=== PATIENT | female | born 1975 | race Caucasian/White ===

== ENCOUNTER 2017-05-12 02:25 | Observation (INO) | payer SELFPAY ==
[~2017-05-12] VITALS: Ht 157.5 cm; Wt 61.0 kg
[~2017-05-12 02:25] MED LIST: AMOCLA875 PO; CEPH500 PO; HYDACE5 PO; HYDPAM25 PO; IBUP800 PO; MEDR150I IM; NAPR220 PO; NYQUELL PO; OXYACE5T PO; PROC10 PO; PROCODE120 PO; SULTRIDS PO
[2017-05-12 02:55] LABS: BASOPHILS ABSOLUTE AUTO 0.04 K/mm3 (0.00-0.23); BASOPHILS PERCENT AUTO 0 % (0-2); EOSINOPHILS ABSOLUTE AUTO 0.02 K/mm3 (0.00-0.68); EOSINOPHILS PERCENT AUTO 0 % (0-6); Hematocrit 46.1 % (33.0-51.0); Hemoglobin 16.2 g/dL (11.5-16.0); IMMATURE GRAN ABSOLUTE AUTO 0.06 K/mm3 (0.00-0.10); IMMATURE GRAN PERCENT AUTO 0 % (0-1); LYMPHOCYTES ABSOLUTE AUTO 1.55 K/mm3 (0.84-5.20); LYMPHOCYTES PERCENT AUTO 11 % (21-46); MONOCYTES ABSOLUTE AUTO 0.79 K/mm3 (0.16-1.47); MONOCYTES PERCENT AUTO 6 % (4-13); Mean Corpuscular HGB 29.8 pg (26.0-34.0); Mean Corpuscular HGB Conc 35.1 g/dL (31.5-36.5); Mean Corpuscular Volume 85 fL (80-100); Mean Platelet Volume 10.7 fL (9.1-12.4); NEUTROPHILS ABSOLUTE AUTO 11.59 K/mm3 (1.96-9.15); NEUTROPHILS PERCENT AUTO 83 % (41-73); Platelet Count 336 K/mm3 (150-400); RDW Standard Deviation 36.7 fL (35.1-46.3); Red Blood Cell Count 5.44 M/mm3 (3.80-5.20); White Blood Cell Count 14.05 K/mm3 (4.00-11.30)
[2017-05-12 03:18] LABS: Alanine Aminotransfer (ALT/SGP 29 U/L (12-78); Albumin, Blood 4.1 g/dL (3.4-5.0); Albumin/Globulin Ratio 0.9 (0.8-1.8); Alk Phos 80 U/L (50-136); Anion Gap 11 mmol/L (6-16); Aspartate Aminotrans (AST/SGOT 22 U/L (12-37); Bilirubin, Total 0.7 mg/dL (0.1-1.0); Blood Urea Nitrogen 14 mg/dL (8-24); Bun/Creatinine Ratio 13.7 (12.0-20.0); CO2, Blood 25 mmol/L (21-32); Calcium, Blood 10.2 mg/dL (8.5-10.1); Chloride, Blood 102 mmol/L (98-108); Creatinine, Blood 1.02 mg/dL (0.40-1.00); Ethanol (Alcohol), Blood, Med <3 mg/dL; Globulin, Blood 4.4 g/dL (2.2-4.0); Glomerular Filtration Rate >60 (60-); Glucose, Blood 140 mg/dL (70-99); Potassium, Blood 3.9 mmol/L (3.5-5.5); Sodium, Blood 138 mmol/L (136-145); Total Protein, Blood 8.5 g/dL (6.4-8.2); Troponin I <0.015 ng/mL (0.000-0.040)
== END 2017-05-13 15:43 | disposition home or self-care (01) ==
LOC: ER 02:25 → SURS 02:26 → ER 04:01 → ERHOLD 04:01 → SURS 04:01 → ERHOLD 08:47 → SURS 05-13 15:43
PROVIDERS: Emergency Medicine
DX: K56.609 Unspecified intestinal obstruction, unspecified as to partial versus complete obstruction (principal); F17.200 Nicotine dependence, unspecified, uncomplicated; Z90.49 Acquired absence of other specified parts of digestive tract; Z98.890 Other specified postprocedural states
CPT/HCPCS: 36415; 74019; 74176; 80053; 83690; 84484; 85025; 93005; 93010; 96361; 96374; 96375; 96376; 99285; G0378; G0480; J1170; J2060; J2405; J7030

== ENCOUNTER 2018-12-27 03:19 | Observation (INO) | payer BC ==
[~2018-12-27] VITALS: Ht 157.5 cm; Wt 63.5 kg
[2018-12-27] MEDS ORDERED: Depo-Prove150 MG/11 IM (03:35)
[2018-12-27 03:46] LABS: BASOPHILS ABSOLUTE AUTO 0.04 K/mm3 (0.00-0.23); BASOPHILS PERCENT AUTO 0 % (0-2); EOSINOPHILS ABSOLUTE AUTO 0.09 K/mm3 (0.00-0.68); EOSINOPHILS PERCENT AUTO 1 % (0-6); Hematocrit 45.4 % (33.0-51.0); Hemoglobin 15.6 g/dL (11.5-16.0); IMMATURE GRAN ABSOLUTE AUTO 0.06 K/mm3 (0.00-0.10); IMMATURE GRAN PERCENT AUTO 0 % (0-1); LYMPHOCYTES ABSOLUTE AUTO 1.87 K/mm3 (0.84-5.20); LYMPHOCYTES PERCENT AUTO 12 % (21-46); MONOCYTES ABSOLUTE AUTO 0.88 K/mm3 (0.16-1.47); MONOCYTES PERCENT AUTO 6 % (4-13); Mean Corpuscular HGB 30.2 pg (26.0-34.0); Mean Corpuscular HGB Conc 34.4 g/dL (31.5-36.5); Mean Corpuscular Volume 88 fL (80-100); Mean Platelet Volume 10.6 fL (9.1-12.4); NEUTROPHILS ABSOLUTE AUTO 12.24 K/mm3 (1.96-9.15); NEUTROPHILS PERCENT AUTO 81 % (41-73); Platelet Count 307 K/mm3 (150-400); RDW Coefficient Variation 12.3 % (11.7-14.2); RDW Standard Deviation 40.2 fL (35.1-46.3); Red Blood Cell Count 5.17 M/mm3 (3.80-5.20); White Blood Cell Count 15.18 K/mm3 (4.00-11.30)
[2018-12-27 04:07] LABS: Alanine Aminotransfer (ALT/SGP 60 U/L (12-78); Albumin, Blood 4.1 g/dL (3.4-5.0); Albumin/Globulin Ratio 0.9 (0.8-1.8); Alk Phos 82 U/L (50-136); Anion Gap 10 mmol/L (6-16); Aspartate Aminotrans (AST/SGOT 35 U/L (12-37); Bilirubin, Total 0.6 mg/dL (0.1-1.0); Blood Urea Nitrogen 21 mg/dL (8-24); Bun/Creatinine Ratio 23.1 (12.0-20.0); CO2, Blood 25 mmol/L (21-32); Calcium, Blood 10.5 mg/dL (8.5-10.1); Chloride, Blood 106 mmol/L (98-108); Creatinine, Blood 0.91 mg/dL (0.40-1.00); Globulin, Blood 4.4 g/dL (2.2-4.0); Glomerular Filtration Rate >60 (60-); Glucose, Blood 133 mg/dL (70-99); Potassium, Blood 3.8 mmol/L (3.5-5.5); Sodium, Blood 141 mmol/L (136-145); Total Protein, Blood 8.5 g/dL (6.4-8.2)
--- NOTE | 2018-12-27 05:55 | NUR ---
PT ADMITTED FROM ED FOR SBO. A&O X4 AND INDEPENDENT IN ROOM. VS WNL. PT GIVEN 1MG OF DILAUDID PRIOR TO ARRIVING. PT RESTING AT THIS TIME.
--- NOTE | 2018-12-27 17:26 | NUR ---
SHIFT SUMMARY PT CONTINUES TO HAVE N/V X'S 2 THIS SHIFT-TOTAL APROX 800ML BROWN EMESIS THIS SHIFT. PT MEDICATED FOR NAUSEA/PAIN PER EMAR. PT DIET ADVANCED TO CLEAR LIQUIDS PER CORINA MENDIETA ORDERED FOR AM. PT OUTSIDE TO SMOKE ONCE THIS SHIFT.
[2018-12-27 18:33] LABS: Source, Urine Clean Catch
[2018-12-27 18:38] LABS: Bilirubin, Urine Neg (Neg); Blood, Urine 1+ (Neg); Glucose Qualitative, Urine Neg (Neg); Ketones, Urine 2+ (Neg); Leukocyte Esterase, Urine 1+ (Neg); Nitrite, Urine Neg (Neg); Protein, Urine 1+ (Neg); Specific Gravity, Urine 1.025 (1.003-1.022); Urobilinogen, Urine NORM (Normal)
[2018-12-27 18:45] LABS: Appearance, Urine Clear (Clear); Color, Urine Yellow (P-Yellow)
[2018-12-27 18:46] LABS: Bacteria Mod /hpf; Red Blood Cells, Urine 0-2 /hpf (0-2); Squamous Epithelial Cells Few /hpf (Few)
[2018-12-27 18:51] LABS: U Amphetamine Screen DETECTED; U Barbituate Screen Not Detected; U Cannabinoids Screen DETECTED; U Methamphetamine Screen DETECTED; U Opiates Screen DETECTED
[2018-12-27 18:52] LABS: U Benzodiazapine Screen Not Detected; U Buprenorphine Screen Not Detected; U Cocaine Screen Not Detected; U Methadone Screen Not Detected; U Oxycodone Screen Not Detected; U Phencyclidine Screen Not Detected; U Propoxyphene Screen Not Detected
--- NOTE | 2018-12-28 07:28 | NUR ---
SHIFT SUMMARY: NO ACUTE CHANGES OVER NIGHT. PAIN MANAGED WITH 1MG DILAUDID. GIVEN ZOFRAN WITH EACH IV PAIN MED ADMINISTRATION. NO EMESIS THIS SHIFT. DENIES PASSING GAS. NPO FOR PLANNED SMALL BOWEL FOLLOW THROUGH THIS MORNING WITH CONTRAST. FLUIDS INFUSING.
--- NOTE | 2018-12-28 17:27 | NUR ---
DISCHARGE PT GIVEN WRITTEN AND VERBAL DISCHARGE INSTRUCTIONS AND VERBALIZED UNDERSTANDING OF THESE INSTRUCTIONS. WAITING ON RIDE FOR DISCHARGE. IV REMOVED, PT TOLERATED WELL.
--- NOTE | 2018-12-28 17:40 | NUR ---
DISCHARGE PT DISCHARGED HOME FROM UNIT AT APROX 7457
== END 2018-12-28 17:38 | disposition home or self-care (01) ==
LOC: ER 03:19 → SURS 03:20 → ER 05:39 → SURS 05:39
PROVIDERS: Emergency Medicine; ADMIT Surgery
DX: K56.600 Partial intestinal obstruction, unspecified as to cause (principal); F17.200 Nicotine dependence, unspecified, uncomplicated
CPT/HCPCS: 36415; 74177; 74250; 80053; 81001; 81025; 83690; 85025; 87077; 87086; 87186; 96374-59; 96375; 96376; 99285-25; J1170; J2405; J7030; Q9967

== ENCOUNTER 2019-03-03 06:04 | Day surgery (SDC) | payer BC ==
[~2019-03-03] VITALS: Ht 157.5 cm; Wt 61.6 kg
[~2019-03-03 06:04] MED LIST changes: +Depo-Prove150 MG/11 IM
--- NOTE | 2019-03-03 06:46 | NUR ---
Ambulatory in Day Surgery History, Chart, Medications and Allergies reviewed before start of procedure. Lungs clear T/O to Auscultation. Pre-Op teaching done. Pt verbalizes understanding. Patient States Post-Procedure ride home has been arranged.
--- NOTE | 2019-03-03 09:44 | NUR ---
"DAY SURGERY RN | DISCHARGED VSS. A/O. DENIES PAIN AND NAUSEA. REINFORCED SITES WITH 2X2 GAUZE AND TAPE. SITES INTACT AND SMALL OOZING. DISCHARGE INSTRUCTIONS AND RX GIVEN TO PATIENT. TAKEN IN WHEELCHAIR TO FRONT ENTRANCE BY VOLUNTEER. NO ISSUES. FAMILY IS RIDE HOME."
--- NOTE | 2019-03-04 08:31 | NUR ---
03/04/19 0831 Tonja Alvarez VERIFICATIONS: EDIT CHART.
== END 2019-03-03 23:07 | disposition home or self-care (01) ==
LOC: ORSCMMR 06:04 → ORD 07:30 → ORSCMMR 23:07
PROVIDERS: Surgery
PROC: 0DNU4ZZ Release Omentum, Percutaneous Endoscopic Approach (ICD-10-PCS; principal; 2019-03-03 07:30)
DX: K66.0 Peritoneal adhesions (postprocedural) (postinfection) (principal); Z87.19 Personal history of other diseases of the digestive system; K56.609 Unspecified intestinal obstruction, unspecified as to partial versus complete obstruction; F17.210 Nicotine dependence, cigarettes, uncomplicated
CPT/HCPCS: J0690; J1100; J1885; J2250; J2405; J2704; J3010; J7120

== ENCOUNTER 2020-02-25 20:27 | Inpatient (IN) | payer SELFPAY ==
[~2020-02-25] VITALS: Ht 157.5 cm; Wt 54.8 kg
[2020-02-25 21:10] LABS: BASOPHILS ABSOLUTE AUTO 0.03 K/mm3 (0.00-0.23); BASOPHILS PERCENT AUTO 0 % (0-2); EOSINOPHILS ABSOLUTE AUTO 0.14 K/mm3 (0.00-0.68); EOSINOPHILS PERCENT AUTO 1 % (0-6); Hematocrit 42.1 % (33.0-51.0); Hemoglobin 14.1 g/dL (11.5-16.0); IMMATURE GRAN ABSOLUTE AUTO 0.02 K/mm3 (0.00-0.10); IMMATURE GRAN PERCENT AUTO 0 % (0-1); LYMPHOCYTES ABSOLUTE AUTO 1.98 K/mm3 (0.84-5.20); LYMPHOCYTES PERCENT AUTO 20 % (21-46); MONOCYTES ABSOLUTE AUTO 0.76 K/mm3 (0.16-1.47); MONOCYTES PERCENT AUTO 8 % (4-13); Mean Corpuscular HGB 29.8 pg (26.0-34.0); Mean Corpuscular HGB Conc 33.5 g/dL (31.5-36.5); Mean Corpuscular Volume 89 fL (80-100); Mean Platelet Volume 10.4 fL (9.1-12.4); NEUTROPHILS ABSOLUTE AUTO 6.85 K/mm3 (1.96-9.15); NEUTROPHILS PERCENT AUTO 70 % (41-73); Platelet Count 291 K/mm3 (150-400); RDW Coefficient Variation 12.3 % (11.7-14.2); RDW Standard Deviation 40.1 fL (35.1-46.3); Red Blood Cell Count 4.73 M/mm3 (3.80-5.20); White Blood Cell Count 9.78 K/mm3 (4.00-11.30)
[2020-02-25 21:33] LABS: Alanine Aminotransfer (ALT/SGP 18 U/L (12-78); Albumin, Blood 3.5 g/dL (3.4-5.0); Alk Phos 66 U/L (50-136); Anion Gap 7 mmol/L (6-16); Aspartate Aminotrans (AST/SGOT 21 U/L (12-37); Bilirubin, Total 0.6 mg/dL (0.1-1.0); Blood Urea Nitrogen 10 mg/dL (8-24); Bun/Creatinine Ratio 13.8 (12.0-20.0); CO2, Blood 25 mmol/L (21-32); Calcium, Blood 8.8 mg/dL (8.5-10.1); Chloride, Blood 108 mmol/L (98-108); Creatinine, Blood 0.72 mg/dL (0.40-1.00); Globulin, Blood 3.6 g/dL (2.2-4.0); Glomerular Filtration Rate >60 (60-); Glucose, Blood 95 mg/dL (70-99); Potassium, Blood 3.9 mmol/L (3.5-5.5); Sodium, Blood 140 mmol/L (136-145); Total Protein, Blood 7.1 g/dL (6.4-8.2)
--- NOTE | 2020-02-26 07:59 | NUR ---
SHIFT SUMMARY NEW ADMIT THIS SHIFT. AAOX4. NPO. PT REPORTING DISCOMFORT AT TOLERABLE LEVEL SINCE ADMISSION TO FLOOR, DENIES NAUSEA/EMESIS. ABD SOFT/MILDLY DISTENDED PER PT. PT REFUSING NGT + COVID TEST THIS SHIFT, REQUESTING TO REST. PT ORIENTED TO ROOM + CALL LIGHT USE. PT CURRENTLY RESTING IN BED WITH CALL LIGHT IN REACH. REPORT TO DAY SHIFT RN.
--- NOTE | 2020-02-26 14:00 | NUR ---
PT BACK FROM IMAGING.
--- NOTE | 2020-02-26 16:44 | NUR ---
SHIFT SUMMARY SBO, A/O X4, VSS, TOLERATING CLEAR FLUIDS, ADVANCING DIET TO FULL LIQUID PER ORDER, AMBULATING, VOIDING WELL, SM BM THIS MORNING. FLUIDS RUNNING PER ORDER, DENIES PAIN, DENIES N/V. CALL LIGHT IN REACH WILL CONTINUE TO MONITOR AND REPORT TO ONCOMING NOC RN.
--- NOTE | 2020-02-27 04:00 | NUR ---
PATIENT HAS BEEN SLEEPING WELL THROUGHOUT NIGHT WITH SOME COMPLAINTS OF HEATBURN, THAT WAS RELEIVED WITH TUMS. SHE IS NOW IN THE SHOWER DUE TO HAVING INCONTINENCE OF STOOL ON THE WAY TO THE BR. PATIENT IS HAVING CHILLS AND 8/10 PAIN IN HER ABDOMEN. SHE STATES THAT SHE DRINKS ONE BEER EVERY 2-3 DAYS. CALL LIGHT IN REACH. WILL MEDICATE WITH TORADOL IV.
[2020-02-27 05:20] LABS: Hematocrit 38.8 % (33.0-51.0); Hemoglobin 12.9 g/dL (11.5-16.0); Mean Corpuscular HGB 29.8 pg (26.0-34.0); Mean Corpuscular HGB Conc 33.2 g/dL (31.5-36.5); Mean Corpuscular Volume 90 fL (80-100); Mean Platelet Volume 10.3 fL (9.1-12.4); Platelet Count 228 K/mm3 (150-400); RDW Standard Deviation 39.3 fL (35.1-46.3); Red Blood Cell Count 4.33 M/mm3 (3.80-5.20)
[2020-02-27 05:33] LABS: Anion Gap 7 mmol/L (6-16); Blood Urea Nitrogen 9 mg/dL (8-24); Bun/Creatinine Ratio 11.8 (12.0-20.0); CO2, Blood 24 mmol/L (21-32); Calcium, Blood 8.4 mg/dL (8.5-10.1); Chloride, Blood 109 mmol/L (98-108); Creatinine, Blood 0.76 mg/dL (0.40-1.00); Glomerular Filtration Rate >60 (60-); Glucose, Blood 108 mg/dL (70-99); Potassium, Blood 3.9 mmol/L (3.5-5.5); Sodium, Blood 140 mmol/L (136-145)
--- NOTE | 2020-02-27 10:08 | NUR ---
pt out of room
--- NOTE | 2020-02-27 17:01 | NUR ---
pt out of room
--- NOTE | 2020-02-27 17:17 | NUR ---
SUMMARY PT C/O OF INCREASING PAIN THIS AFTERNOON TO ABDOMEN. MEDICATED PER ORDERS W/TORADOL W/NO RELIEF. OBTAINED ORDERS FOR OT DOSE OF DILAUDID WHICH WAS ADMINISTERED PER ORDERS WELL ZOFRAN. PT RESTED W/LIGHTS OFF. NOW OUT OF ROOM INDEPENDENTLY.
--- NOTE | 2020-02-27 18:59 | NUR ---
REPORT GIVEN TO ONCOMING SHIFT.
--- NOTE | 2020-02-28 04:53 | NUR ---
SHIFT SUMMARY: PT BEGAN TO COMPLAIN OF SEVERE ABD PAIN LATE LAST NIGHT DESPITE ADMINISTRATION OF TORADOL. NEW ORDER FOR 0.5MG DILAUDID WHICH WAS AFFECTIVE. PT ALSO GIVEN ZOFRAN FOR NAUSEA. NO EMESIS. MEDICATED WITH TUMS PER EMAR FOR HEARTBURN. HYPERACTIVE BT X4. MODERATE DISTENTION. PT REPORTS PASSING FLATUS. PT HAS BEEN NPO SINCE MIDNIGHT WITH IVF INFUSING. PLAN FOR XRAY THIS MORNING AND POSSIBLE SURGERY DEPENDING ON RESULTS IMAGING.
--- NOTE | 2020-02-28 10:39 | NUR ---
PT TO OR
--- NOTE | 2020-02-28 11:24 | NUR ---
Ambulatory in Day Surgery. History, Chart, Medications and Allergies reviewed before start of procedure.Lungs clear T/O to Auscultation. Patient confirms NPO status and agrees with scheduled surgery. Pre-Op teaching done. Pt verbalizes understanding. PATIENT WAS BROUGHT TO D/S FOR HER PROCEDURE
--- NOTE | 2020-02-28 11:41 | NUR ---
ASSUMED CARE AND REPORT FROM ROLO RUBIO RN. PT AWAKE AND ORIENTED, C/O OF BACK PAIN FROM BEING IN BED TOO LONG, PROVIDED CHANGE IN POSITION, WARM BLANKET TO BACK AND ELEVATED KNEES WITH SOME RELIEF. PROVIDED RELAZING ENVIRONMENT FOR ANXIETY WITH MUSIC THERAPY INCLUDED.
--- NOTE | 2020-02-28 15:02 | NUR ---
PT ARRIVED BACK TO FLOOR FROM PACU. DENIED PAIN, N/V OR SOB. LAP INCISIONS X4 W/DERMABOND. CDI. PT ALERT AND REQUESTING SOMETHING TO DRINK ORDERS OBTAINED TO ADVANCE DIET TOLERATED. VSS. PT OUTSIDE IN WC, ACCOMPANIED BY FATHER AFTER TWO SETS OF POST OP VS. ADVISED PT TO RETURN TO ROOM W/IN 20 MINUTES FOR SAFETY.
[2020-02-28] MEDS ORDERED: ACET325 PO (16:02)
[2020-02-28] MEDS ORDERED: IBU600 M1 PO (16:03)
[2020-02-28] MEDS ORDERED: OXAYDO5 M1 PO (16:04)
--- NOTE | 2020-02-28 16:34 | NUR ---
DISCHARGED VSS. PT ANXIOUS TO GO HOME. TOLERATED JELLO, FLUIDS AND PUDDING. DC'D IV, CATHETER INTACT. REVIEWED DC INSTRUCTIONS; PT VERBALIZED UNDERSTANDING. LEFT UNIT IN WC, ACCOMPANIED BY FATHER W/POSSESSIONS AND DC PAPERWORK IN HAND.
== END 2020-02-28 16:34 | disposition home or self-care (01) | DRG 337 ==
LOC: ER 20:27 → SURS 20:28 → ERHOLD 20:28 → SURS 23:46
PROVIDERS: Emergency Medicine; ADMIT Surgery
PROC: 0DNU4ZZ Release Omentum, Percutaneous Endoscopic Approach (ICD-10-PCS; principal; 2020-02-28 12:00)
PROC: 0DNW4ZZ Release Peritoneum, Percutaneous Endoscopic Approach (ICD-10-PCS; 2020-02-28 12:00)
DX: K56.50 Intestinal adhesions [bands], unspecified as to partial versus complete obstruction (principal); F17.200 Nicotine dependence, unspecified, uncomplicated; Z20.828 Contact with and (suspected) exposure to other viral communicable diseases
CPT/HCPCS: 36415; 74018; 74250; 80048; 80053; 83605; 83690; 83735; 85025; 85027; 87040; 96361; 96374; 96375; 99284-25; J0690; J1100; J1170; J1885; J2250; J2270; J2370; J2405; J2704; J2710; J3010; J7120; U0004

== ENCOUNTER 2020-03-01 16:58 | Observation (INO) | payer SELFPAY ==
[~2020-03-01] VITALS: Ht 157.5 cm; Wt 59.8 kg
[~2020-03-01 16:58] MED LIST changes: +ACET325 PO; +IBU600 M1 PO; +OXAYDO5 M1 PO
[2020-03-01 17:49] LABS: BASOPHILS ABSOLUTE AUTO 0.04 K/mm3 (0.00-0.23); BASOPHILS PERCENT AUTO 0 % (0-2); EOSINOPHILS ABSOLUTE AUTO 0.17 K/mm3 (0.00-0.68); EOSINOPHILS PERCENT AUTO 2 % (0-6); Hematocrit 42.4 % (33.0-51.0); IMMATURE GRAN ABSOLUTE AUTO 0.02 K/mm3 (0.00-0.10); IMMATURE GRAN PERCENT AUTO 0 % (0-1); LYMPHOCYTES ABSOLUTE AUTO 1.67 K/mm3 (0.84-5.20); LYMPHOCYTES PERCENT AUTO 15 % (21-46); MONOCYTES ABSOLUTE AUTO 0.83 K/mm3 (0.16-1.47); MONOCYTES PERCENT AUTO 7 % (4-13); Mean Corpuscular HGB 28.9 pg (26.0-34.0); Mean Corpuscular Volume 87 fL (80-100); Mean Platelet Volume 10.1 fL (9.1-12.4); NEUTROPHILS ABSOLUTE AUTO 8.44 K/mm3 (1.96-9.15); NEUTROPHILS PERCENT AUTO 76 % (41-73); Platelet Count 300 K/mm3 (150-400); RDW Coefficient Variation 11.9 % (11.7-14.2); RDW Standard Deviation 38.7 fL (35.1-46.3); Red Blood Cell Count 4.85 M/mm3 (3.80-5.20); White Blood Cell Count 11.17 K/mm3 (4.00-11.30)
[2020-03-01 18:12] LABS: Source, Urine Clean Catch
[2020-03-01 18:17] LABS: Appearance, Urine Hazy (Clear); Bilirubin, Urine Neg (Neg); Blood, Urine 1+ (Neg); Color, Urine Yellow (P-Yellow); Glucose Qualitative, Urine Neg (Neg); Ketones, Urine 2+ (Neg); Leukocyte Esterase, Urine Neg (Neg); Nitrite, Urine Neg (Neg); Protein, Urine 1+ (Neg); Urobilinogen, Urine NORM (Normal); pH, Urine 6.5 (5.0-8.0)
[2020-03-01 18:21] LABS: Alanine Aminotransfer (ALT/SGP 40 U/L (12-78); Albumin, Blood 3.9 g/dL (3.4-5.0); Alk Phos 78 U/L (50-136); Anion Gap 5 mmol/L (6-16); Aspartate Aminotrans (AST/SGOT 31 U/L (12-37); Bilirubin, Total 0.3 mg/dL (0.1-1.0); Blood Urea Nitrogen 12 mg/dL (8-24); Bun/Creatinine Ratio 14.5 (12.0-20.0); CO2, Blood 31 mmol/L (21-32); Calcium, Blood 9.5 mg/dL (8.5-10.1); Chloride, Blood 106 mmol/L (98-108); Creatinine, Blood 0.83 mg/dL (0.40-1.00); Globulin, Blood 4.1 g/dL (2.2-4.0); Glomerular Filtration Rate >60 (60-); Glucose, Blood 90 mg/dL (70-99); Potassium, Blood 3.7 mmol/L (3.5-5.5); Sodium, Blood 142 mmol/L (136-145)
[2020-03-01 18:35] LABS: Amorphous Mod (0-Heavy); Bacteria Few /hpf; Mucus Light (0-Heavy); Renal Epithelial Few /hpf (0-Rare); Squamous Epithelial Cells Many /hpf (Few); Transitional Epithelial Cells Few /hpf (0-Rare); White Blood Cells, Urine 0-2 /hpf (0-5)
[2020-03-02 06:09] LABS: BASOPHILS ABSOLUTE AUTO 0.04 K/mm3 (0.00-0.23); BASOPHILS PERCENT AUTO 1 % (0-2); EOSINOPHILS ABSOLUTE AUTO 0.38 K/mm3 (0.00-0.68); EOSINOPHILS PERCENT AUTO 5 % (0-6); Hematocrit 38.1 % (33.0-51.0); IMMATURE GRAN ABSOLUTE AUTO 0.02 K/mm3 (0.00-0.10); IMMATURE GRAN PERCENT AUTO 0 % (0-1); LYMPHOCYTES ABSOLUTE AUTO 2.05 K/mm3 (0.84-5.20); LYMPHOCYTES PERCENT AUTO 26 % (21-46); MONOCYTES ABSOLUTE AUTO 0.97 K/mm3 (0.16-1.47); MONOCYTES PERCENT AUTO 12 % (4-13); Mean Corpuscular HGB Conc 34.1 g/dL (31.5-36.5); Mean Corpuscular Volume 88 fL (80-100); Mean Platelet Volume 10.2 fL (9.1-12.4); NEUTROPHILS ABSOLUTE AUTO 4.57 K/mm3 (1.96-9.15); NEUTROPHILS PERCENT AUTO 57 % (41-73); Platelet Count 254 K/mm3 (150-400); Red Blood Cell Count 4.34 M/mm3 (3.80-5.20); White Blood Cell Count 8.03 K/mm3 (4.00-11.30)
[2020-03-02 06:25] LABS: Anion Gap 6 mmol/L (6-16); Blood Urea Nitrogen 16 mg/dL (8-24); Bun/Creatinine Ratio 17.4 (12.0-20.0); CO2, Blood 33 mmol/L (21-32); Calcium, Blood 8.8 mg/dL (8.5-10.1); Chloride, Blood 104 mmol/L (98-108); Creatinine, Blood 0.92 mg/dL (0.40-1.00); Glomerular Filtration Rate >60 (60-); Glucose, Blood 81 mg/dL (70-99); Potassium, Blood 3.4 mmol/L (3.5-5.5); Sodium, Blood 143 mmol/L (136-145)
--- NOTE | 2020-03-02 12:10 | NUR ---
pt req nicotine patch will call office at 1300
--- NOTE | 2020-03-02 15:25 | NUR ---
pt reported passing more gas dec overall pain req i call dr dumont re removing ngt and having cl diet message left with ans serv
--- NOTE | 2020-03-02 15:25 | NUR ---
ngt removed per order and ok to start cl diet
--- NOTE | 2020-03-02 17:22 | NUR ---
PT RACHEL CL HAD 2 CUPS OF TEA AND SOME JELLO NO INC ABD PAIN OR N/V STILL PASSING FLATUS
--- NOTE | 2020-03-02 18:30 | NUR ---
pt starting to have inc pain from eating 09/27 iv dilaudid given
--- NOTE | 2020-03-03 05:22 | NUR ---
PTS BP 141/101. PT STATES SHE HAS HX HTN BUT DOES NOT TREAT IT.I CALLED DR ELIAS AND RECEIVED NO CALL BACK.I RECEIVED CALL FROM PHARMACIST REGARDING ORDER INPUT TO PK PER DR ELIAS FOR IV HYDRALAZINE WHICH WE DO NOT HAVE AVAILABLE DUE TO MEDICATION SHORTAGE.I PLACED FOLLOW UP CALL TO DR ELIAS WAITINGRETURN CALL.
--- NOTE | 2020-03-03 07:35 | NUR ---
PT OUT OF ROOM
--- NOTE | 2020-03-03 07:55 | NUR ---
PT AMBULATING IN HALLS WANTS TO TRY FOOD. EXPRESSED FRUSTRATION ABOUT SITUATION. REPORTS PASSING FLATUS.
--- NOTE | 2020-03-03 08:39 | NUR ---
SUMMARY DR ELIAS DID NOT RETURN MY CALL ALTHOUGH I SEE NEW MED ORDERS. I DO NOT BELIEVE PT WILL ALLOW CARDIAC MONITORING? PT WITH ? HEMORRHOIDS REQUESTING HEMORRHOID CREAM IT HAS HELPED HER WITH THE PAIN IN PAST,ALSO PT REQUESTING INCREASED DIET TO FULL LIQ.HOWEVER, I HAVE BEEN UNABLE TO SPEAK WITH DR REGARDING CONCERNS AND QUESTIONS.
--- NOTE | 2020-03-03 10:31 | NUR ---
PT AGITATED PT AWOKE FROM NAP AGITATED. WANTS TO EAT. STATES NEEDS TO EAT TO KNOW IF GETTING BETTER. PT STATES GOING TO LEAVE AMA. ASKED PT TO WAIT UNTIL I PLACED CALL TO DR ELIAS. PT WENT OUTSIDE. PLACED MSG OUT TO DR ELIAS ASKING TO CALL.
--- NOTE | 2020-03-03 10:47 | NUR ---
OUT OF ROOM
--- NOTE | 2020-03-03 11:19 | NUR ---
BACK TO ROOM SPOKE TO DR ELIAS, OBTAINED PHONE ORDERS FOR FULL LIQUID DIET. PT CAME BACK TO ROOM W/HALF EATEN NELLIE. REQUESTED PAIN AND NAUSEA MEDS. WHEN ASKED IF PAIN INCREASED AFTER EATING ICECREAM, PT STATED "I THINK I'M JUST UPSET." PT TEARFUL. MEDICATED PER ORDERS FOR NAUSEA AND 8/10 PAIN. PT NOW RESTING IN BED.
--- NOTE | 2020-03-03 16:06 | NUR ---
PT AMBULATING IN HALLS
--- NOTE | 2020-03-03 17:01 | NUR ---
SUMMARY PT MORE CALM NOW. TOLERATED FULL LIQUIDS. ADVANCING TO SOFT DIET PER ORDERS FOR DINNER. MEDICATED ONCE DURING SHIFT FOR NAUSEA AND PAIN PER ORDERS. PT SHOWERED. INDEPENDENT. AMBULATES OUTSIDE FREQUENTLY.
--- NOTE | 2020-03-04 07:24 | NUR ---
out of room
--- NOTE | 2020-03-04 07:50 | NUR ---
MAGALIS PT TOLERATING PO. HOPING TO GO HOME TODAY.
--- NOTE | 2020-03-04 08:22 | NUR ---
PT REPORTS HAD BM YESTERDAY AFTERNOON STATES WANTS TO GO HOME
--- NOTE | 2020-03-04 08:47 | NUR ---
PT REPORTED BM THIS AM.
--- NOTE | 2020-03-04 10:00 | NUR ---
DISCHARGED PT EAGER TO BE DISCHARGED. REVIEWED DC INSTRUCTIONS; PT VERBALIZED UNDERSTANDING. IV DC'D PREVIOUSLY PER PT REQUEST. PT LEFT UNIT BY AMBULATION W/POSSESSIONS AND DC PAPERWORK IN HAND.
== END 2020-03-04 09:57 | disposition home or self-care (01) ==
LOC: ER 16:58 → SURS 16:59
PROVIDERS: Physician Assistant; ADMIT Surgery
DX: K56.609 Unspecified intestinal obstruction, unspecified as to partial versus complete obstruction (principal); F17.210 Nicotine dependence, cigarettes, uncomplicated; Z90.49 Acquired absence of other specified parts of digestive tract; Z79.1 Long term (current) use of non-steroidal anti-inflammatories (NSAID)
CPT/HCPCS: 36415; 74177; 80048; 80053; 81001; 83690; 85025; 96361; 96374-59; 96375-59; 96376; 99285-25; G0378; J1170; J1885; J2405; J3480; J7030; J7120; Q9967

== ENCOUNTER 2024-08-06 11:16 | Inpatient (IN) | payer BC, OTHER ==
[~2024-08-06] VITALS: Ht 157.5 cm; Wt 68.0 kg
[2024-08-06] MEDS ORDERED: NS 1,000 ML IV SCH (11:40)
[2024-08-06] MEDS ORDERED: Ketorolac Tromethamine 30mg Vial IV ONE (11:40)
[2024-08-06] MEDS ORDERED: Ondansetron HCl 2 MG / ML 2ML Vial IV ONE (11:40)
[2024-08-06 11:50] LABS: BASOPHILS ABSOLUTE AUTO 0.02 K/mm3 (0.00-0.23); BASOPHILS PERCENT AUTO 0 % (0-2); EOSINOPHILS ABSOLUTE AUTO 0.02 K/mm3 (0.00-0.68); EOSINOPHILS PERCENT AUTO 0 % (0-6); Hematocrit 47.2 % (33.0-51.0); Hemoglobin 16.5 g/dL (11.5-16.0); IMMATURE GRAN ABSOLUTE AUTO 0.03 K/mm3 (0.00-0.10); IMMATURE GRAN PERCENT AUTO 0 % (0-1); LYMPHOCYTES ABSOLUTE AUTO 1.23 K/mm3 (0.84-5.20); LYMPHOCYTES PERCENT AUTO 10 % (21-46); MONOCYTES ABSOLUTE AUTO 0.21 K/mm3 (0.16-1.47); MONOCYTES PERCENT AUTO 2 % (4-13); Mean Corpuscular HGB 29.5 pg (26.0-34.0); Mean Corpuscular Volume 84 fL (80-100); Mean Platelet Volume 10.5 fL (9.1-12.4); NEUTROPHILS ABSOLUTE AUTO 10.98 K/mm3 (1.96-9.15); NEUTROPHILS PERCENT AUTO 88 % (41-73); Platelet Count 339 K/mm3 (150-400); RDW Coefficient Variation 12.8 % (11.7-14.2); RDW Standard Deviation 39.7 fL (35.1-46.3); Red Blood Cell Count 5.59 M/mm3 (3.80-5.20); White Blood Cell Count 12.49 K/mm3 (4.00-11.30)
[2024-08-06 12:03] LABS: Albumin/Globulin Ratio 0.9 (0.8-1.8); Bilirubin, Direct 0.1 mg/dL (0.0-0.3); Bilirubin, Indirect 0.4 mg/dL (0.1-0.7); Bilirubin, Total 0.5 mg/dL (0.1-1.0); Bun/Creatinine Ratio 18.4 (12.0-20.0); Calcium, Blood 8.9 mg/dL (8.5-10.1); Creatinine, Blood 1.14 mg/dL (0.40-1.00); Globulin, Blood 4.3 g/dL (2.2-4.0); Potassium, Blood 3.3 mmol/L (3.5-5.5); Total Protein, Blood 8.3 g/dL (6.4-8.2)
[2024-08-06] MEDS ORDERED: Lactated Ringer's 1,000 ML IV SCH (14:00)
[2024-08-06] MEDS ORDERED: Ondansetron HCl 2 MG / ML 2ML Vial IV PRN (14:05)
[2024-08-06] MEDS ORDERED: Potassium Chloride 40 MEQ in NS 250 ML IV ONE (14:05)
[2024-08-06] MEDS ORDERED: Ketorolac Tromethamine 15mg Vial IV PRN ×3 (14:15→17:30)
[2024-08-06 15:43] VITALS: BP 145/89
[2024-08-06] MEDS ORDERED: Calcium Carbonate 500 MG Tab Chew PO PRN (16:25)
[2024-08-06] MEDS ORDERED: Nicotine 21 MG PATCH TOP SCH ×2 (17:20→18:00)
[2024-08-06] MEDS ORDERED: LORazepam 2 MG/ML 1ML Injection IV ONE (18:00)
[2024-08-06] MEDS ORDERED: Lidocaine 2% Jelly Uro-Jet TOP SCH (18:05)
--- NOTE | 2024-08-06 19:42 | NUR ---
PT ADMITTED THIS AFTERNOON FOR SBO. EXTENSIVE HX OF BLOCKAGES. PT ADAMANTLY REFUSING NGT. WAS ABLE TO ATTEMPT X1 THIS EVENING AFTER ATIVAN GIVEN. PT FOUGHT AGAINST THIS AND ANOTHER RN WHILE ATTEMPTING TO ADVANCE NGT. AND ATTEMPT WAS UNSUCCESSFUL. PT HAS HAD 2500CC EMESIS THIS SHIFT. ZOFRAN FOR NAUSEA. LR RUNNING PER ORDERS. POTASSIUM REPLACEMENT GIVEN IV. PT STARTED ON ACID BOOKER MEDICATIONS SHE COMPLAINS OR REFLUX MORE THAN PAIN. TORADOL ORDERED NEEDED.
[2024-08-06 20:16] VITALS: BP 132/101
[2024-08-07 03:53] VITALS: BP 134/94
[2024-08-07 04:18] LABS: BASOPHILS ABSOLUTE AUTO 0.02 K/mm3 (0.00-0.23); BASOPHILS PERCENT AUTO 0 % (0-2); EOSINOPHILS ABSOLUTE AUTO 0.08 K/mm3 (0.00-0.68); EOSINOPHILS PERCENT AUTO 1 % (0-6); Hematocrit 40.3 % (33.0-51.0); Hemoglobin 14.1 g/dL (11.5-16.0); IMMATURE GRAN ABSOLUTE AUTO 0.03 K/mm3 (0.00-0.10); IMMATURE GRAN PERCENT AUTO 0 % (0-1); LYMPHOCYTES ABSOLUTE AUTO 1.56 K/mm3 (0.84-5.20); LYMPHOCYTES PERCENT AUTO 16 % (21-46); MONOCYTES ABSOLUTE AUTO 0.83 K/mm3 (0.16-1.47); MONOCYTES PERCENT AUTO 8 % (4-13); Mean Corpuscular HGB 29.6 pg (26.0-34.0); Mean Corpuscular Volume 85 fL (80-100); Mean Platelet Volume 10.4 fL (9.1-12.4); NEUTROPHILS ABSOLUTE AUTO 7.37 K/mm3 (1.96-9.15); NEUTROPHILS PERCENT AUTO 75 % (41-73); Platelet Count 284 K/mm3 (150-400); RDW Coefficient Variation 13.1 % (11.7-14.2); Red Blood Cell Count 4.77 M/mm3 (3.80-5.20); White Blood Cell Count 9.89 K/mm3 (4.00-11.30)
[2024-08-07 04:41] LABS: Albumin, Blood 3.4 g/dL (3.4-5.0); Albumin/Globulin Ratio 0.9 (0.8-1.8); Bilirubin, Total 0.7 mg/dL (0.1-1.0); Bun/Creatinine Ratio 25.5 (12.0-20.0); Calcium, Blood 8.8 mg/dL (8.5-10.1); Creatinine, Blood 1.1 mg/dL (0.40-1.00); Globulin, Blood 3.7 g/dL (2.2-4.0); Potassium, Blood 3.6 mmol/L (3.5-5.5); Total Protein, Blood 7.1 g/dL (6.4-8.2)
[2024-08-07] MEDS ORDERED: Pantoprazole Sodium 20 MG Tab PO SCH (06:00)
[2024-08-07] MEDS ORDERED: Pantoprazole Sodium 40 MG Injection IV SCH (06:00)
--- NOTE | 2024-08-07 06:43 | NUR ---
SHIFT SUMMARY NOC. PT ADMIT FOR SBO. PT A/O X4, VERY DROWSY AT START OF SHIFT R/T ATIVAN DOSE FOR NG TUBE ATTEMPT. NO NG TUBE PLACED. DENIES VOMIT EPISODES THIS SHIFT. MEDICATED FOR NAUSEA X1, PT MEDICATED FOR ABDOMINAL PAIN X2 WITH TORADOL. PT HAD COPIOUS AMOUNTS OF VOMIT ON DAY SHIFT. PT HAS NOT VOIDED THIS SHIFT, DISCUSSED WITH GENERAL ASSISTANT. PT BLADDER SCAN PERFORMED AND PT MAKING URINE. PT DENIES URGE TO VOID AND STATES SHE "WANTS TO SLEEP". CALL LIGHT IN REACH.
[2024-08-07 07:30] VITALS: BP 141/101
[2024-08-07] MEDS ORDERED: Lactated Ringer's 1,000 ML IV SCH (08:15)
[2024-08-07] MEDS ORDERED: Nicotine 21 MG PATCH TOP SCH (09:00)
[2024-08-07] MEDS ORDERED: Enoxaparin 40 MG/0.4 ML SYR SC SCH ×2 (09:00)
--- NOTE | 2024-08-07 12:54 | NUR ---
MORNING NOTE THIS RN ASSUMED CARE AT APPROX 0715. PATIENT SLEEPING MOST OF THE MORNING - EASILY AROUSABLE WITH VERBAL STIMULI. ALERT AND ORIENTED X4. INDEPENDENT IN ROOM. CONTINUOUS PULSE OX IN PLACE - SATs >90% ON ROOM AIR. TACHYCARDIC 90s-100s. HTN NOTED - SBP 140s, DBP 100s. PATIENT ASYMPTOMATIC. DENIES CHEST PAIN, PRESSURE. REPORTS IMPROVING ABD PAIN. DENIES N/V AT THIS TIME. REPORTS FLATULENCE. ABD TENDER, HYPOACTIVE BOWEL TONES. MD MARTINO AT BEDSIDE THIS MORNING - DIET ADVANCED TO CLEAR LIQUID. PATIENT TOLERATING DIET. ABD XRAY COMPLETED THIS MORNING. CALL LIGHT IN REACH. FAMILY AT BEDSIDE.
[2024-08-07 14:13] VITALS: BP 155/100
[2024-08-07 14:20] VITALS: BP 140/94
[2024-08-07 15:50] VITALS: BP 141/102
--- NOTE | 2024-08-07 16:02 | NUR ---
UPDATE PATIENT LETHARGIC, SLEEPING THROUGHOUT DAY. AROUSABLE WITH VERBAL STIMULI BEFORE FALLING BACK TO SLEEP. CONTINOUS PULSE OX IN PLACE, SATs REMAIN >90% WITH SLEEP ON ROOM AIR. RR SHALLOW - 12-14 WITH SLEEP. SBP SUSTAINING 140s-150s, DBP 90s-110s. HR 80s-110s. DENIES CHEST PAIN, PRESSURE. SLIGHT MOTTLING NOTED BLE - UNDER KNEES AND THIGHS. SKIN PALE, FLUSHED. NEW ONSET FROM PREVIOUS ASSESSMENTS THIS MORNING. IVF INFUSING PER EMAR. ABD REMAINS SOFT, MINIMAL TENDERNESS. HYPOACTIVE BOWEL TONES. DENIES ABD PAIN, N/V. TOLERATED CLEAR LIQUID INTAKE. X1 VOID THIS SHIFT - URINE DARK W/ STRONG ODOR. MD BAZZI NOTIFIED. NO NEW ORDERS RECEIVED. WILL CONTINUE TO MONITOR.
--- NOTE | 2024-08-07 17:27 | NUR ---
SHIFT SUMMARY SEE PREVIOUS NOTES - NO ACUTE CHANGES. PATIENT REMAINS LETHARGIC - AROUSABLE WITH VERBAL STIMULI. CONTINUOUS PULSE OX IN PLACE - SATs REMAIN >90%. RR SHALLOW, EVEN - 10-14. RATE 80s-90s BPM. NO CHANGES TO MOTTLING BLE. NO EPISODES OF N/V. DENIES ABD PAIN. TOLERATING CLEAR LIQUID DIET. IVF INFUSING PER EMAR. CALL LIGHT IN REACH.
[2024-08-07 20:01] VITALS: BP 126/97
[2024-08-08 03:47] VITALS: BP 134/99
--- NOTE | 2024-08-08 04:33 | NUR ---
SHIFT SUMMARY PATIENT IS AOX4, TOLERATING CL DIET, REPORTS BEING HUNGRY. MEDICATED WITH TORADOL X2 FOR STOMACH CRAMPING. PATIENT IS PASSING GAS AND VOIDING. NO BM. IVF RUNNING @100. VSS, PULSE OX IN PLACE AND CALL LIGHT WITH IN REACH.
[2024-08-08 04:53] LABS: BASOPHILS ABSOLUTE AUTO 0.02 K/mm3 (0.00-0.23); BASOPHILS PERCENT AUTO 0 % (0-2); EOSINOPHILS PERCENT AUTO 2 % (0-6); Hematocrit 38.2 % (33.0-51.0); Hemoglobin 13.1 g/dL (11.5-16.0); IMMATURE GRAN ABSOLUTE AUTO 0.01 K/mm3 (0.00-0.10); IMMATURE GRAN PERCENT AUTO 0 % (0-1); LYMPHOCYTES ABSOLUTE AUTO 0.92 K/mm3 (0.84-5.20); LYMPHOCYTES PERCENT AUTO 17 % (21-46); MONOCYTES ABSOLUTE AUTO 0.51 K/mm3 (0.16-1.47); MONOCYTES PERCENT AUTO 9 % (4-13); Mean Corpuscular HGB 29.6 pg (26.0-34.0); Mean Corpuscular HGB Conc 34.3 g/dL (31.5-36.5); Mean Corpuscular Volume 86 fL (80-100); NEUTROPHILS ABSOLUTE AUTO 3.98 K/mm3 (1.96-9.15); NEUTROPHILS PERCENT AUTO 72 % (41-73); Platelet Count 209 K/mm3 (150-400); RDW Coefficient Variation 12.9 % (11.7-14.2); RDW Standard Deviation 40.7 fL (35.1-46.3); Red Blood Cell Count 4.42 M/mm3 (3.80-5.20); White Blood Cell Count 5.54 K/mm3 (4.00-11.30)
[2024-08-08 05:11] LABS: Albumin, Blood 2.8 g/dL (3.4-5.0); Albumin/Globulin Ratio 0.9 (0.8-1.8); Bilirubin, Total 0.8 mg/dL (0.1-1.0); Bun/Creatinine Ratio 18.2 (12.0-20.0); Calcium, Blood 7.6 mg/dL (8.5-10.1); Creatinine, Blood 0.77 mg/dL (0.40-1.00); Globulin, Blood 3.1 g/dL (2.2-4.0); Potassium, Blood 3.9 mmol/L (3.5-5.5); Total Protein, Blood 5.9 g/dL (6.4-8.2)
[2024-08-08 07:11] VITALS: BP 135/93
--- NOTE | 2024-08-08 10:07 | NUR ---
MORNING NOTE THIS RN ASSUMED CARE AT APPROX 0715. PATIENT ALERT AND ORIENTED X4. COMMUNICATES NEEDS EFFECTIVELY. MUCH MORE ALERT WHEN COMPARED TO YESTERDAY. VS IMPROVED. SBP 130s, DBP 90s. MAP >65. DENIES CHEST PAIN, PRESSURE. CONTINUOUS PULSE OX IN PLACE - SATs >90% ON ROOM AIR. SBO - REPORTS FLATULENCE, DENIES BM. ABD PAIN MANAGED PER EMAR. MODERATE DISTENTION, ABD SOFT. TENDER. HYPOACTIVE BOWEL TONES. DENIES N/V - TOLERATING CLEAR LIQUID DIET. DIET ADVANCED TO FULL LIQUID THIS MORNING. SHOWERED. AMBULATING WITH SBA. CALL LIGHT IN REACH.
--- NOTE | 2024-08-08 13:04 | NUR ---
AT APPROX 1245, WHILE ROUNDING, PATIENT NOTED TO NOT BE IN ROOM. PERSONAL BELONGINGS IN ROOM. UNABLE TO LOCATE PATIENT WITHIN UNIT OR CLOSE PROXIMITY TO AREA. FOAMING MACHINE OPERATOR DELANO NOTIFIED. AT APPROX 1300, PATIENT RETURNED TO UNIT WITH FATHER. WHEN ASKED WHERE SHE WENT, PATIENT STATED "I WENT FOR A WALK." EDUCATION PROVIDED REGARDING NOTIFYING STAFF WHEN GOING FOR A WALK, ESPECIALLY WHEN LEAVING UNIT. PATIENT STATES UNDERSTANDING.
--- NOTE | 2024-08-08 13:23 | NUR ---
UPDATE MD MARTINO ROUNDING ON UNIT. PATIENT ABLE TO DC HOME THIS EVENING IF TOLERATING ADVANCED DIET.
[2024-08-08] MEDS ORDERED: KETO10 PO (14:22)
[2024-08-08] MEDS ORDERED: ONDA4ODT MM (14:23)
[2024-08-08 15:08] VITALS: BP 144/106
[2024-08-08 15:10] VITALS: BP 148/106
--- NOTE | 2024-08-08 17:20 | NUR ---
DISCHARGE NOTE NO ACUTE CHANGES SINCE PREVIOUS NOTES. HTN NOTED - SBP 140s, DBP 100s. PATIENT STATES BASELINE, MD AWARE PRIOR TO DC. PATIENT TOLERATING ADVANCED LOW FIBER DIET. ABD DISTENTION REMAINS MODERATE. DENIES N/V. REPORTS FLATULENCE. VOIDING. PATIENT EAGER TO DC HOME. IV REMOVED. WRITTEN AND VERBAL EDUCATION PROVIDED - PATIENT STATES UNDERSTANDING. PERSONAL BELONGINGS WITH PATIENT.
== END 2024-08-08 17:25 | disposition home or self-care (01) | DRG 389 ==
LOC: ER 11:16 → SURS 14:03
PROVIDERS: Student in an Organized Health Care Education/Training Program; ADMIT Internal Medicine
DX: K56.609 Unspecified intestinal obstruction, unspecified as to partial versus complete obstruction (principal); N17.9 Acute kidney failure, unspecified; E87.6 Hypokalemia; F11.91 Opioid use, unspecified, in remission; F15.91 Other stimulant use, unspecified, in remission; F17.200 Nicotine dependence, unspecified, uncomplicated; D72.829 Elevated white blood cell count, unspecified; D75.1 Secondary polycythemia
CPT/HCPCS: 36415; 74019; 74177; 80048; 80053; 80076; 83690; 83735; 84703; 85025; 93005; 93010; 94762; A9270; J1650; J1885; J2060; J2405; J2470; J3480; J7030; J7050; J7120; Q9967